=== PATIENT | female | born 1940 ===

== ENCOUNTER 2019-01-16 09:56 | Outpatient (CLI) | payer OTHER ==
[~2019-01-16] VITALS: Ht 147.3 cm; Wt 53.5 kg
[2019-01-16] MEDS ORDERED: AYR SALINE NA14.1 GM NASAL (10:50)
[2019-01-16] MEDS ORDERED: DERMOTIC20 ML OTIC (10:50)
== END 2019-01-16 10:15 | disposition home or self-care (01) ==
LOC: OFIC 805 09:56
DX: L29.9 Pruritus, unspecified (principal); H91.8X3 Other specified hearing loss, bilateral; J31.0 Chronic rhinitis

== ENCOUNTER 2019-02-06 08:36 | Outpatient (CLI) | payer OTHER ==
[~2019-02-06] VITALS: Ht 121.9 cm; Wt 53.5 kg
[~2019-02-06 08:36] MED LIST: AYR SALINE NA14.1 GM NASAL; DERMOTIC20 ML OTIC
[2019-02-06] MEDS ORDERED: ZANTAC300 MG PO (10:43)
== END 2019-02-06 09:00 | disposition home or self-care (01) ==
LOC: OFIC 805 08:36
DX: L29.9 Pruritus, unspecified (principal); H91.8X3 Other specified hearing loss, bilateral; J31.0 Chronic rhinitis; H91.13 Presbycusis, bilateral; R05 Cough; J37.0 Chronic laryngitis

== ENCOUNTER 2020-02-07 11:59 | Outpatient (CLI) | payer OTHER ==
[~2020-02-07 11:59] MED LIST changes: +ZANTAC300 MG PO
== END 2020-02-07 12:01 | disposition home or self-care (01) ==
LOC: SONOGRAMA 11:59
PROVIDERS: ATTEND Surgery
DX: N60.11 Diffuse cystic mastopathy of right breast (principal); N60.12 Diffuse cystic mastopathy of left breast; R92.0 Mammographic microcalcification found on diagnostic imaging of breast

== ENCOUNTER 2020-03-06 06:43 | Day surgery (SDC) | payer OTHER ==
[~2020-03-06 06:43] MED LIST changes: +ATORVASTATIN CA40 MG PO; +CO Q-10200 MG PO; +COZAAR100 MG PO; +ISOSORBIDE DINI30 MG PO; +JANUMET XR 1001 EACH PO; +METFORMIN HCL500 M3 PO; +PEPCID AC20 MG PO; +TENORMIN25 MG PO
== END 2020-03-06 20:05 | disposition home or self-care (01) ==
LOC: CIR.AMB 06:43
PROVIDERS: ATTEND Surgery
DX: C50.312 Malignant neoplasm of lower-inner quadrant of left female breast (principal)